=== PATIENT | female | born 1940 | race Caucasian/White ===

== ENCOUNTER 2016-11-21 10:15 | Outpatient (CLI) | payer MEDICARE | END 2016-11-21 10:16 | disposition home or self-care (01) | DX: M79.89 Other specified soft tissue disorders (principal) ==

== ENCOUNTER 2017-01-03 00:17 | Outpatient (CLI) | payer MEDICARE | END 2017-01-03 00:18 | disposition EMS.NT | DX: R07.89 Other chest pain (principal) ==

== ENCOUNTER 2017-01-29 11:50 | Outpatient (CLI) | payer MEDICARE | END 2017-01-29 11:51 | disposition home or self-care (01) | DX: R74.8 Abnormal levels of other serum enzymes (principal); D72.829 Elevated white blood cell count, unspecified ==

== ENCOUNTER 2018-07-08 10:54 | Outpatient (CLI) | payer MEDICARE | END 2018-07-08 10:55 | disposition home or self-care (01) | LOC: LAB.WCP 10:54 | PROVIDERS: ATTEND Family Medicine | DX: R22.1 Localized swelling, mass and lump, neck (principal) | CPT/HCPCS: 36415; 84443 ==